=== PATIENT | male | born 1935 | race Caucasian/White ===

== ENCOUNTER 2017-08-12 22:48 | Inpatient (IN) ==
[2017-08-12] MEDS ORDERED: ONDANSETRON 4 MG/2 ML VIAL IV STA (23:17)
[2017-08-12] MEDS ORDERED: NITROGLYCERIN 2% OINT 1 INCH/GM PACK TOP STA (23:17)
[2017-08-12] MEDS ORDERED: ASPIRIN 325 MG TABLET PO STA (23:17)
[2017-08-12 23:31] LABS: Basophils # 0.1 10*3/uL (0.0-0.2); Basophils % 0.8 % (0.0-0.8); Eosinophils # 0.3 10*3/uL (0.0-0.87); Hematocrit 38.7 VOL% (42.0-52.0); Hemoglobin 12.9 GM/DL (14.0-18.0); Immature Granulocytes % 0.1 %; Immature Granulocytes Absolute 0.01 #; Lymphocytes # 2.8 10*3/uL (1.4-4.0); Lymphocytes % 37.5 % (21.2-54.2); Mean Corpuscular HGB Conc 33.3 GM/DL (32-36); Mean Corpuscular Hemoglobin 30 PG (27-34); Mean Corpuscular Volume 90.2 FL (87-102); Mean Platelet Volume 10.8 FL (9.6-12.0); Monocytes # 1.3 10*3/uL (0.11-0.8); Monocytes % 16.6 % (1.7-12.7); Neutrophils # 3.1 10*3/uL (1.4-7.4); Platelet Count 232 T/CUMM (130-400); Red Blood Count 4.29 MC/CUMM (3.8-5.5); Red Cell Distribution Width 15.2 % (9.3-17.3); White Blood Count 7.5 T/CUMM (4-12)
[2017-08-12] MEDS ORDERED: NITROGLYCERIN 2% OINT 1 INCH/GM PACK TOP ONE (23:41)
[2017-08-12] MEDS ORDERED: ASPIRIN 325 MG TABLET ONE (23:41)
[2017-08-12] MEDS ORDERED: ONDANSETRON 4 MG/2 ML VIAL ONE (23:41)
[2017-08-12 23:42] LABS: Alanine Aminotransferase 14 U/L (16-61); Albumin 3.7 G/DL (3.4-5.0); Alkaline Phosphatase 63 U/L (45-117); Aspartate Amino Transferase 16 U/L (0-37); Bilirubin,Total < 0.39 MG/DL (0.2-1.0); Blood Urea Nitrogen 24 MG/DL (7-18); Calcium 8.9 MG/DL (8.5-10.1); Glucose 95 MG/DL (74-106); Potassium 3.8 MMOL/L (3.5-5.1); Sodium 143 MMOL/L (136-145); Total Protein 6.9 G/DL (6.4-8.3)
[2017-08-13 00:48] LABS: Apearance,Urine Slightly Hazy (Clear); Bilirubin,Urine Negative (Negative); Blood, Urine Moderate mg/dL (Negative); Glucose,Urine (UA) Negative (Negative); Hyaline Casts,Urine 6 /LPF (0-3); Ketones,Urine Negative (Negative); Mucus,Urine Occasional /LPF (Occasional); Nitrite,Urine Negative (Negative); Protein,Urine Negative; RBC,Urine 7 /HPF (0-4); Squamous Epithelial Cell,Urine Occasional /HPF (0-10); Urine Color Yellow (Yellow); Urine Specific Gravity 1.025 (1.001-1.035); Urine Urobilinogen < 2.0 EU/DL (0.2-1.0); WBC,Urine 11 /HPF (0-6)
[2017-08-13 00:49] LABS: Barbiturates Screen,Urine Negative (Negative); Benzodiazepines Screen,Urine Negative (Negative); Cannabinoid Screen,Urine Negative (Negative); Opiate Screen,Urine Negative (Negative); Phencyclidine Screen,Urine Negative (Negative)
[2017-08-13 01:05] LABS: Eosinophils 4 % (0-10); Lymphocytes 36 % (20-55); Segmented Neutrophils 45 % (50-85); Total Cells Counted 100
[2017-08-13 01:06] LABS: Burr Cells Few; Platelet Estimate Adequate
[2017-08-13 01:07] LABS: Ovalocytes Slight; Target Cells Slight
[2017-08-13] MEDS ORDERED: ALUM/MAG/SIMETH/LIDO VISC 1:1 30 ML BOTTLE PO ONE (01:16)
[2017-08-13] MEDS ORDERED: ONDANSETRON 4 MG/2 ML VIAL IV PRN (02:31)
[2017-08-13] MEDS ORDERED: HYDROmorphone 2 MG/1 ML VIAL IV PRN (02:31)
[2017-08-13 08:11] LABS: Troponin I Only < 0.015 NG/ML (0.00-0.045)
[2017-08-13] MEDS ORDERED: PANTOPRAZOLE 40 MG VIAL IV SCH (09:00)
[2017-08-13] MEDS ORDERED: OMEPRAZOLE PO SCH (11:15)
[2017-08-13] MEDS ORDERED: SODIUM BICARBONATE PO SCH (11:15)
[2017-08-13] MEDS ORDERED: COENZYME Q10 100 MG CAPSULE PO SCH (11:30)
[2017-08-13] MEDS ORDERED: METOPROLOL SUCCINATE XL 25 MG TABLET PO SCH (11:30)
[2017-08-13] MEDS ORDERED: ASPIRIN EC 81 MG TABLET PO SCH (11:30)
[2017-08-13] MEDS ORDERED: CLOPIDOGREL 75 MG TABLET PO SCH (11:30)
[2017-08-13] MEDS ORDERED: CYANOCOBALAMIN 500 MCG TABLET PO SCH (11:30)
[2017-08-13] MEDS ORDERED: DIAZEPAM 5 MG TABLET ONE (12:21)
[2017-08-13] MEDS ORDERED: diphenhydrAMINE CAP 50 MG CAPSULE ONE (12:21)
[2017-08-13] MEDS ORDERED: DIAZEPAM 5 MG TABLET PO ONE (12:25)
[2017-08-13] MEDS ORDERED: diphenhydrAMINE CAP 50 MG CAPSULE PO ONE (12:25)
[2017-08-13] MEDS ORDERED: HEPARIN/NACL 0.9% 2 UNITS/ML 2,000 ML IV ONE (12:26)
[2017-08-13] MEDS ORDERED: LIDOCAINE 1% 20 ML VIAL ONE (12:26)
[2017-08-13] MEDS ORDERED: NITROGLYCERIN DRIP 50 MG/250 ML BOTTLE IV ONE (12:26)
[2017-08-13] MEDS ORDERED: VERAPAMIL 5 MG/2 ML VIAL ONE (12:27)
[2017-08-13] MEDS ORDERED: MIDAZOLAM 2 MG/2 ML VIAL ONE (12:36)
[2017-08-13] MEDS ORDERED: HYDROmorphone 2 MG/1 ML VIAL ONE (12:36)
[2017-08-13] MEDS: NITROGLYCERIN 2% OINT 1 INCH/GM PACK TOP SCH ×2 (12:46→12:47)
[2017-08-13] MEDS: SODIUM CHLORIDE 0.9% 1,000 ML IV SCH ×2 (12:48→17:31)
[2017-08-13] MEDS ORDERED: ENOXAPARIN 30 MG/0.3 ML SYRINGE ONE (13:03)
[2017-08-13 16:26] VITALS: BP 127/66
[2017-08-13] MEDS ORDERED: ROSUVASTATIN 10 MG TABLET PO SCH (21:00)
== END 2017-08-13 17:30 | disposition home or self-care (01) | DRG 287 ==
LOC: N.ED 22:48 → N.EDINP 08-13 00:10 → N.TELEN 08-13 01:30
PROVIDERS: ADMIT Internal Medicine Cardiovascular Disease; ATTEND Internal Medicine Cardiovascular Disease
PROC: CLCCHCL (ICD-10-PCS; 2017-08-13 13:15)

== ENCOUNTER 2018-06-17 20:09 | Observation (INO) ==
[2018-06-17] MEDS ORDERED: MORPHINE 4 MG/1 ML VIAL IV STA (21:45)
[2018-06-17] MEDS ORDERED: ASPIRIN 325 MG TABLET PO STA (21:45)
[2018-06-17] MEDS ORDERED: NITROGLYCERIN 2% OINT 1 INCH/GM PACK TOP STA (21:45)
[2018-06-17] MEDS ORDERED: ONDANSETRON 4 MG/2 ML VIAL IV STA (21:45)
[2018-06-17 22:21] LABS: Basophils # 0.1 10*3/uL (0.0-0.2); Basophils % 0.6 % (0.0-0.8); Eosinophils # 0.3 10*3/uL (0.0-0.87); Eosinophils % 3.1 % (0.00-10.9); Hematocrit 38.1 VOL% (42.0-52.0); Hemoglobin 12.4 GM/DL (14.0-18.0); Immature Granulocytes % 0.5 %; Immature Granulocytes Absolute 0.05 #; Lymphocytes # 2.4 10*3/uL (1.4-4.0); Lymphocytes % 22.3 % (21.2-54.2); Mean Corpuscular HGB Conc 32.5 GM/DL (32-36); Mean Corpuscular Hemoglobin 30 PG (27-34); Mean Corpuscular Volume 93.2 FL (87-102); Mean Platelet Volume 10.5 FL (9.6-12.0); Monocytes # 1.5 10*3/uL (0.11-0.8); Monocytes % 14.1 % (1.7-12.7); Neutrophils # 6.5 10*3/uL (1.4-7.4); Neutrophils % 59.4 % (38.7-73.9); Platelet Count 257 T/CUMM (130-400); Red Blood Count 4.09 MC/CUMM (3.8-5.5); Red Cell Distribution Width 13.8 % (9.3-17.3); White Blood Count 10.9 T/CUMM (4-12)
[2018-06-17 22:35] LABS: PT Patient Result 11.1 SECS; Partial Thromboplastin Time 25.7 SECS (0-40)
[2018-06-17 22:46] LABS: Albumin 3.3 G/DL (3.4-5.0); Bilirubin,Total 0.5 MG/DL (0.2-1.0); Calcium 8.1 MG/DL (8.5-10.1); Osmolality,Calculated 286.3 MOS/KG (273-304); Potassium 4.1 MMOL/L (3.5-5.1); Total Protein 7.1 G/DL (6.4-8.3)
[2018-06-17 22:48] LABS: Apearance,Urine CLEAR (Clear); Bilirubin,Urine Negative (Negative); Blood, Urine Small mg/dL (Negative); Glucose,Urine (UA) Negative (Negative); Ketones,Urine Negative (Negative); Mucus,Urine Occasional /LPF (Occasional); Nitrite,Urine Negative (Negative); Protein,Urine Negative; RBC,Urine 2 /HPF (0-4); Squamous Epithelial Cell,Urine Occasional /HPF (0-10); Urine Color Yellow (Yellow); Urine Urobilinogen < 2.0 EU/DL (0.2-1.0); WBC,Urine 1 /HPF (0-6)
[2018-06-17] MEDS ORDERED: ENOXAPARIN 100 MG/ML SYRINGE SUBCUT STA (22:56)
[2018-06-18] MEDS ORDERED: MORPHINE 4 MG/1 ML VIAL IV PRN (01:22)
[2018-06-18] MEDS ORDERED: ONDANSETRON 4 MG/2 ML VIAL IV PRN (01:22)
[2018-06-18] MEDS ORDERED: SODIUM CHLORIDE 0.9% 1,000 ML IV SCH (01:22)
[2018-06-18] MEDS ORDERED: ACETAMINOPHEN 325 MG TABLET PO PRN (01:22)
[2018-06-18 03:37] LABS: Basophils # 0.1 10*3/uL (0.0-0.2); Basophils % 0.6 % (0.0-0.8); Eosinophils # 0.4 10*3/uL (0.0-0.87); Eosinophils % 3.4 % (0.00-10.9); Hematocrit 36.9 VOL% (42.0-52.0); Immature Granulocytes % 0.2 %; Immature Granulocytes Absolute 0.02 #; Lymphocytes # 3.2 10*3/uL (1.4-4.0); Lymphocytes % 30.9 % (21.2-54.2); Mean Corpuscular HGB Conc 32.5 GM/DL (32-36); Mean Corpuscular Hemoglobin 30 PG (27-34); Mean Corpuscular Volume 92.5 FL (87-102); Mean Platelet Volume 10.8 FL (9.6-12.0); Monocytes # 1.6 10*3/uL (0.11-0.8); Monocytes % 15.3 % (1.7-12.7); Neutrophils # 5.1 10*3/uL (1.4-7.4); Neutrophils % 49.6 % (38.7-73.9); Platelet Count 252 T/CUMM (130-400); Red Blood Count 3.99 MC/CUMM (3.8-5.5); Red Cell Distribution Width 13.6 % (9.3-17.3); White Blood Count 10.2 T/CUMM (4-12)
[2018-06-18 03:44] LABS: Albumin 3.1 G/DL (3.4-5.0); Bilirubin,Total 0.6 MG/DL (0.2-1.0); Osmolality,Calculated 285.3 MOS/KG (273-304); Potassium 4.1 MMOL/L (3.5-5.1); Total Protein 6.7 G/DL (6.4-8.3); VLDL CHOLESTEROL 12.4 MG/DL
[2018-06-18] MEDS ORDERED: NITROGLYCERIN 2% OINT 1 INCH/GM PACK TOP SCH (06:00)
[2018-06-18] MEDS ORDERED: cloNIDine 0.1 MG TABLET PO PRN (06:33)
[2018-06-18 08:27] LABS: Eosinophils 2 % (0-10); Hypochromasia 1+; Lymphocytes 34 % (20-55); Microcytosis Slight; Segmented Neutrophils 55 % (50-85); Total Cells Counted 100
[2018-06-18 08:28] LABS: Acanthocytes Few; Burr Cells Slight; Ovalocytes Slight; Platelet Estimate Normal
[2018-06-18] MEDS ORDERED: ISOSORBIDE MONONITRATE 30 MG TABLET PO SCH (09:00)
[2018-06-18] MEDS ORDERED: ENOXAPARIN 80 MG/0.8 ML SYRINGE SUBCUT SCH (09:00)
[2018-06-18] MEDS ORDERED: CLOPIDOGREL 75 MG TABLET PO SCH (09:00)
[2018-06-18] MEDS ORDERED: METOPROLOL SUCCINATE XL 25 MG TABLET PO SCH (09:00)
[2018-06-18] MEDS ORDERED: ASPIRIN EC 81 MG TABLET PO SCH (09:00)
[2018-06-18] MEDS ORDERED: DOCUSATE SODIUM 100 MG CAPSULE PO SCH (09:00)
[2018-06-18] MEDS ORDERED: COENZYME Q10 100 MG CAPSULE PO SCH (09:00)
[2018-06-18] MEDS ORDERED: PANTOPRAZOLE 40 MG TABLET PO SCH (09:00)
[2018-06-18] MEDS ORDERED: hydrALAZINE 25 MG TABLET PO PRN (15:45)
[2018-06-18] MEDS ORDERED: GLUCAGON 1 MG VIAL ONE (15:58)
[2018-06-18 16:46] VITALS: BP 121/61
[2018-06-18] MEDS ORDERED: predniSONE 20 MG TABLET PO SCH (18:00)
[2018-06-18] MEDS ORDERED: ROSUVASTATIN 10 MG TABLET PO SCH (21:00)
[2018-06-19] MEDS ORDERED: ENOXAPARIN 40 MG/0.4 ML SYRINGE SUBCUT SCH (09:00)
== END 2018-06-18 17:13 | disposition home or self-care (01) ==
LOC: N.EDINP 20:09 → N.ED 20:09 → N.TELES 23:26
PROVIDERS: ADMIT Family Medicine; ATTEND Family Medicine

== ENCOUNTER 2018-11-10 16:55 | Observation (INO) ==
[2018-11-10] MEDS ORDERED: ENOXAPARIN 100 MG/ML SYRINGE SUBCUT STA (17:14)
[2018-11-10] MEDS ORDERED: MORPHINE 4 MG/1 ML VIAL IV PRN (17:14)
[2018-11-10] MEDS ORDERED: ASPIRIN 325 MG TABLET PO STA (17:14)
[2018-11-10] MEDS ORDERED: ONDANSETRON 4 MG/2 ML VIAL IV PRN (17:14)
[2018-11-10 17:31] LABS: Basophils # 0.1 10*3/uL (0.0-0.2); Basophils % 0.6 % (0.0-0.8); Eosinophils # 0.1 10*3/uL (0.0-0.87); Hemoglobin 12.7 GM/DL (14.0-18.0); Immature Granulocytes % 0.2 %; Immature Granulocytes Absolute 0.02 #; Lymphocytes # 1.4 10*3/uL (1.4-4.0); Lymphocytes % 14.6 % (21.2-54.2); Mean Corpuscular HGB Conc 32.6 GM/DL (32-36); Mean Corpuscular Volume 96.1 FL (87-102); Mean Platelet Volume 10.4 FL (9.6-12.0); Monocytes % 12.6 % (1.7-12.7); Platelet Count 208 T/CUMM (130-400); Red Blood Count 4.06 MC/CUMM (3.8-5.5); Red Cell Distribution Width 14.6 % (9.3-17.3); White Blood Count 9.8 T/CUMM (4-12)
[2018-11-10] MEDS: NITROGLYCERIN 2% OINT 1 INCH/GM PACK TOP STA ×2 (17:36→18:43)
[2018-11-10 17:43] LABS: PT Patient Result 10.7 SECS
[2018-11-10 17:54] LABS: Albumin 3.6 G/DL (3.4-5.0); Calcium 8.9 MG/DL (8.5-10.1); Total Protein 7.1 G/DL (6.4-8.3)
[2018-11-10] MEDS ORDERED: SODIUM CHLORIDE 0.9% 1,000 ML IV SCH (18:00)
[2018-11-10] MEDS ORDERED: ENOXAPARIN 40 MG/0.4 ML SYRINGE SUBCUT SCH (18:30)
[2018-11-10] MEDS ORDERED: AZELASTINE NASAL 137 MCG/SPRAY 30 ML BOTTLE BOTH NARES PRN (20:23)
[2018-11-10] MEDS: ROSUVASTATIN 10 MG TABLET PO SCH (22:13)
[2018-11-10] MEDS: DOCUSATE SODIUM 100 MG CAPSULE PO SCH (22:13)
[2018-11-10] MEDS: POTASSIUM CHLORIDE RIDER 10 MEQ in PREMIX 1 EACH IV SCH (22:18)
[2018-11-10] MEDS ORDERED: POTASSIUM CHLORIDE RIDER 10 MEQ in PREMIX 1 EACH IV SCH (23:00)
[2018-11-10] MEDS: POTASSIUM CHLORIDE 20 MEQ TABLET PO PRN (23:26)
[2018-11-10] MEDS: POTASSIUM CHLORIDE INJ 20 MEQ in SODIUM CHLORIDE 0.9% 1,000 ML IV SCH (23:26)
[2018-11-11] MEDS: POTASSIUM CHLORIDE 20 MEQ TABLET PO PRN ×3 (01:40→06:54)
[2018-11-11 04:55] LABS: Basophils # 0.1 10*3/uL (0.0-0.2); Basophils % 0.8 % (0.0-0.8); Eosinophils # 0.2 10*3/uL (0.0-0.87); Eosinophils % 3.3 % (0.00-10.9); Hematocrit 36.1 VOL% (42.0-52.0); Hemoglobin 11.8 GM/DL (14.0-18.0); Immature Granulocytes % 0.2 %; Immature Granulocytes Absolute 0.01 #; Lymphocytes # 2.3 10*3/uL (1.4-4.0); Mean Corpuscular HGB Conc 32.7 GM/DL (32-36); Mean Corpuscular Volume 96.8 FL (87-102); Mean Platelet Volume 10.6 FL (9.6-12.0); Monocytes % 14.2 % (1.7-12.7); Neutrophils % 43.5 % (38.7-73.9); Platelet Count 189 T/CUMM (130-400); Red Blood Count 3.73 MC/CUMM (3.8-5.5); Red Cell Distribution Width 14.6 % (9.3-17.3); White Blood Count 6.1 T/CUMM (4-12)
[2018-11-11 05:28] LABS: Albumin 3.2 G/DL (3.4-5.0); Bilirubin,Total 0.8 MG/DL (0.2-1.0); Calcium 8.1 MG/DL (8.5-10.1); Osmolality,Calculated 287.8 MOS/KG (273-304); Thyroid Stimulating Hormone 1.54 uIU/ml (0.358-3.74); Total Protein 6.1 G/DL (6.4-8.3)
[2018-11-11] MEDS: POTASSIUM CHLORIDE INJ 20 MEQ in SODIUM CHLORIDE 0.9% 1,000 ML IV SCH (06:52)
[2018-11-11] MEDS: DOCUSATE SODIUM 100 MG CAPSULE PO SCH ×2 (08:57→21:08)
[2018-11-11] MEDS ORDERED: METOPROLOL SUCCINATE XL 25 MG TABLET PO SCH (09:00)
[2018-11-11] MEDS ORDERED: CLOPIDOGREL 75 MG TABLET PO SCH (09:00)
[2018-11-11] MEDS ORDERED: CYANOCOBALAMIN 500 MCG TABLET PO SCH (09:00)
[2018-11-11] MEDS ORDERED: VALSARTAN 160 MG TABLET PO SCH (09:00)
[2018-11-11] MEDS ORDERED: ASPIRIN EC 81 MG TABLET PO SCH (09:00)
[2018-11-11] MEDS ORDERED: COENZYME Q10 100 MG CAPSULE PO SCH (09:00)
[2018-11-11] MEDS ORDERED: FUROSEMIDE 40 MG TABLET PO SCH (09:00)
[2018-11-11] MEDS ORDERED: hydroCHLOROthiazide 12.5 MG CAPSULE PO SCH (09:00)
[2018-11-11] MEDS ORDERED: amLODIPine 5 MG TABLET PO SCH (09:00)
[2018-11-11] MEDS ORDERED: PANTOPRAZOLE 40 MG TABLET PO SCH (09:00)
[2018-11-11] MEDS ORDERED: SODIUM CHLOR 0.9% KCL 20 MEQ 20 MEQ/1,000 ML BAG IV SCH (10:30)
[2018-11-11] MEDS ORDERED: ENOXAPARIN 40 MG/0.4 ML SYRINGE SUBCUT SCH (17:00)
[2018-11-11 20:28] VITALS: BP 129/77
[2018-11-11] MEDS: ROSUVASTATIN 10 MG TABLET PO SCH (21:06)
== END 2018-11-11 22:32 | disposition home or self-care (01) ==
LOC: EDBD → EDUNIT# → N.ED 16:55 → INTOOBSV 17:58 → N.EDINP 18:00 → N.TELES 19:12
PROVIDERS: ADMIT Family Medicine; ATTEND Family Medicine

== ENCOUNTER 2019-09-18 08:14 | Inpatient (IN) ==
[2019-09-18] MEDS ORDERED: PANTOPRAZOLE INJ 80 MG in SODIUM CHLORIDE 0.9% 100 ML IV STA (08:30)
[2019-09-18] MEDS ORDERED: SODIUM CHLORIDE 0.9% 500 ML IV STA ×2 (08:30→08:45)
[2019-09-18] MEDS ORDERED: PANTOPRAZOLE 40 MG VIAL IV ONE (08:37)
[2019-09-18 08:50] LABS: Basophils # 0.1 10*3/uL (0.0-0.2); Basophils % 0.5 % (0.0-0.8); Eosinophils # 0.1 10*3/uL (0.0-0.87); Eosinophils % 1.3 % (0.00-10.9); Hematocrit 38.3 VOL% (42.0-52.0); Hemoglobin 12.6 GM/DL (14.0-18.0); Immature Granulocytes % 0.9 %; Immature Granulocytes Absolute 0.08 #; Lymphocytes # 1.7 10*3/uL (1.4-4.0); Lymphocytes % 18.5 % (21.2-54.2); Mean Corpuscular HGB Conc 32.9 GM/DL (32-36); Mean Corpuscular Volume 99.7 FL (87-102); Mean Platelet Volume 10.2 FL (9.6-12.0); Neutrophils % 67.8 % (38.7-73.9); Platelet Count 198 T/CUMM (130-400); Red Blood Count 3.84 MC/CUMM (3.8-5.5); Red Cell Distribution Width 13.8 % (9.3-17.3); White Blood Count 9.3 T/CUMM (4-12)
[2019-09-18] MEDS ORDERED: ONDANSETRON 4 MG/2 ML VIAL IV PRN (08:58)
[2019-09-18] MEDS ORDERED: SODIUM CHLORIDE 0.9% 1,000 ML IV PRN (09:02)
[2019-09-18 09:03] LABS: PT Patient Result 11.1 SECS (9.6-12.2); Partial Thromboplastin Time 22.2 SECS (20.8-36.0)
[2019-09-18 09:12] LABS: Albumin 3.3 G/DL (3.4-5.0); Bilirubin,Total 0.4 MG/DL (0.2-1.0); Calcium 8.8 MG/DL (8.5-10.1); Osmolality,Calculated 293.4 MOS/KG (273-304); Total Protein 6.5 G/DL (6.4-8.3)
[2019-09-18] MEDS: PANTOPRAZOLE 40 MG VIAL IV SCH ×2 (10:06→20:56)
[2019-09-18] MEDS: SODIUM CHLORIDE 0.9% 1,000 ML IV SCH ×3 (10:31→21:01)
[2019-09-18] MEDS: DOCUSATE SODIUM 100 MG CAPSULE PO SCH ×2 (10:55→20:56)
[2019-09-18 11:20] LABS: Hematocrit 35.5 VOL% (42.0-52.0); Hemoglobin 11.4 GM/DL (14.0-18.0)
[2019-09-18 16:44] LABS: Hematocrit 31.4 VOL% (42.0-52.0)
[2019-09-18] MEDS: traMADol 50 MG TABLET PO PRN (20:57)
[2019-09-18] MEDS: ROSUVASTATIN 10 MG TABLET PO SCH (20:57)
[2019-09-18 21:04] LABS: Hematocrit 31.2 VOL% (42.0-52.0); Hemoglobin 10.2 GM/DL (14.0-18.0)
[2019-09-19 00:54] LABS: Hematocrit 26.8 VOL% (42.0-52.0); Hemoglobin 8.9 GM/DL (14.0-18.0)
[2019-09-19 04:52] LABS: Basophils % 0.3 % (0.0-0.8); Eosinophils # 0.1 10*3/uL (0.0-0.87); Eosinophils % 0.6 % (0.00-10.9); Hematocrit 25.2 VOL% (42.0-52.0); Hemoglobin 8.5 GM/DL (14.0-18.0); Immature Granulocytes % 0.6 %; Immature Granulocytes Absolute 0.06 #; Lymphocytes % 31.5 % (21.2-54.2); Mean Corpuscular HGB Conc 33.7 GM/DL (32-36); Mean Corpuscular Volume 99.2 FL (87-102); Mean Platelet Volume 11.1 FL (9.6-12.0); Monocytes % 12.6 % (1.7-12.7); Neutrophils % 54.4 % (38.7-73.9); Platelet Count 143 T/CUMM (130-400); Red Blood Count 2.54 MC/CUMM (3.8-5.5); Red Cell Distribution Width 13.9 % (9.3-17.3); White Blood Count 9.6 T/CUMM (4-12)
[2019-09-19] MEDS: SODIUM CHLORIDE 0.9% 1,000 ML IV SCH ×3 (05:16→15:14)
[2019-09-19] MEDS: PANTOPRAZOLE 40 MG VIAL IV SCH ×2 (08:52→20:43)
[2019-09-19] MEDS: DOCUSATE SODIUM 100 MG CAPSULE PO SCH ×2 (08:54→20:43)
[2019-09-19] MEDS: COENZYME Q10 100 MG CAPSULE PO SCH (08:57)
[2019-09-19 11:26] LABS: Troponin I 0.018 NG/ML (0.00-0.045)
[2019-09-19 13:07] LABS: Basophils # 0.1 10*3/uL (0.0-0.2); Basophils % 0.4 % (0.0-0.8); Eosinophils # 0.1 10*3/uL (0.0-0.87); Eosinophils % 0.7 % (0.00-10.9); Hematocrit 25.6 VOL% (42.0-52.0); Hemoglobin 8.4 GM/DL (14.0-18.0); Immature Granulocytes % 0.7 %; Immature Granulocytes Absolute 0.08 #; Lymphocytes # 2.6 10*3/uL (1.4-4.0); Lymphocytes % 23.4 % (21.2-54.2); Mean Corpuscular HGB Conc 32.8 GM/DL (32-36); Mean Corpuscular Volume 100.4 FL (87-102); Mean Platelet Volume 10.7 FL (9.6-12.0); Neutrophils % 60.8 % (38.7-73.9); Platelet Count 147 T/CUMM (130-400); Red Blood Count 2.55 MC/CUMM (3.8-5.5); Red Cell Distribution Width 14.1 % (9.3-17.3); White Blood Count 11.1 T/CUMM (4-12)
[2019-09-19] MEDS: FERRIC GLUCONATE COMPLEX 125 MG in SODIUM CHLORIDE 0.9% 100 ML IV SCH (13:47)
[2019-09-19 17:18] LABS: Hematocrit 23.2 VOL% (42.0-52.0); Hemoglobin 7.6 GM/DL (14.0-18.0)
[2019-09-19] MEDS: ROSUVASTATIN 10 MG TABLET PO SCH (20:43)
[2019-09-20] MEDS: traMADol 50 MG TABLET PO PRN (01:04)
[2019-09-20] MEDS: SODIUM CHLORIDE 0.9% 1,000 ML IV SCH ×3 (01:06→20:24)
[2019-09-20 04:45] LABS: Hematocrit 21.1 VOL% (42.0-52.0); Hemoglobin 7.1 GM/DL (14.0-18.0)
[2019-09-20] MEDS: PANTOPRAZOLE 40 MG VIAL IV SCH ×2 (08:42→20:22)
[2019-09-20] MEDS: DOCUSATE SODIUM 100 MG CAPSULE PO SCH ×2 (08:43→20:26)
[2019-09-20] MEDS ORDERED: POLYVINYL ALCOHOL 1.4% OPH SOLN 15 ML BOTTLE BOTH EYES PRN (08:43)
[2019-09-20] MEDS ORDERED: SODIUM CHLORIDE 0.9% 1,000 ML IV PRN (08:52)
[2019-09-20] MEDS: COENZYME Q10 100 MG CAPSULE PO SCH (13:14)
[2019-09-20] MEDS: FERRIC GLUCONATE COMPLEX 125 MG in SODIUM CHLORIDE 0.9% 100 ML IV SCH (16:24)
[2019-09-20] MEDS: ROSUVASTATIN 10 MG TABLET PO SCH (20:23)
[2019-09-21] MEDS: traMADol 50 MG TABLET PO PRN (01:06)
[2019-09-21] MEDS ORDERED: HYDROmorphone 2 MG/1 ML VIAL IV ONE (02:28)
[2019-09-21] MEDS: ONDANSETRON 4 MG/2 ML VIAL IV PRN ×4 (07:16→21:10)
[2019-09-21] MEDS: HYDROmorphone 2 MG/1 ML VIAL IV PRN ×2 (07:19→13:05)
[2019-09-21] MEDS: PANTOPRAZOLE 40 MG VIAL IV SCH ×2 (09:18→21:10)
[2019-09-21] MEDS: COENZYME Q10 100 MG CAPSULE PO SCH (09:19)
[2019-09-21] MEDS: FERRIC GLUCONATE COMPLEX 125 MG in SODIUM CHLORIDE 0.9% 100 ML IV SCH (09:24)
[2019-09-21] MEDS: DOCUSATE SODIUM 100 MG CAPSULE PO SCH ×2 (09:40→21:10)
[2019-09-21 10:22] LABS: Albumin 3.3 G/DL (3.4-5.0); Bilirubin,Total 0.4 MG/DL (0.2-1.0); Calcium 7.9 MG/DL (8.5-10.1); Total Protein 6.3 G/DL (6.4-8.3)
[2019-09-21 11:41] LABS: Basophils % 0.3 % (0.0-0.8); Eosinophils % 0.1 % (0.00-10.9); Hematocrit 28.6 VOL% (42.0-52.0); Hemoglobin 9.6 GM/DL (14.0-18.0); Immature Granulocytes Absolute 0.13 #; Lymphocytes # 1.4 10*3/uL (1.4-4.0); Lymphocytes % 10.8 % (21.2-54.2); Mean Corpuscular HGB Conc 33.6 GM/DL (32-36); Mean Corpuscular Volume 97.9 FL (87-102); Mean Platelet Volume 11.6 FL (9.6-12.0); Monocytes % 15.6 % (1.7-12.7); Neutrophils % 72.2 % (38.7-73.9); Platelet Count 148 T/CUMM (130-400); Red Blood Count 2.92 MC/CUMM (3.8-5.5); Red Cell Distribution Width 15.8 % (9.3-17.3); White Blood Count 12.6 T/CUMM (4-12)
[2019-09-21 12:13] LABS: Anisocytosis 1+; Band Neutrophils 4 % (0-10); Lymphocytes 9 % (20-55); Macrocytosis 1+; Platelet Estimate Adequate; Segmented Neutrophils 79 % (50-85); Total Cells Counted 100
[2019-09-21] MEDS: SODIUM CHLORIDE 0.9% 1,000 ML IV SCH (13:01)
[2019-09-21 14:59] LABS: Apearance,Urine CLEAR (Clear); Bilirubin,Urine Negative (Negative); Blood, Urine Moderate mg/dL (Negative); Glucose,Urine (UA) Negative (Negative); Ketones,Urine Negative (Negative); Mucus,Urine Occasional /LPF (Occasional); Nitrite,Urine Negative (Negative); Protein,Urine Negative; RBC,Urine 1 /HPF (0-4); Urine Color Yellow (Yellow); Urine Specific Gravity 1.019 (1.001-1.035); Urine Urobilinogen < 2.0 EU/DL (0.2-1.0); WBC,Urine 2 /HPF (0-6)
[2019-09-21] MEDS: ROSUVASTATIN 10 MG TABLET PO SCH (21:10)
[2019-09-22] MEDS: SODIUM CHLORIDE 0.9% 1,000 ML IV SCH (05:25)
[2019-09-22] MEDS ORDERED: LOSARTAN 50 MG TABLET PO SCH (09:00)
[2019-09-22] MEDS: PANTOPRAZOLE 40 MG VIAL IV SCH (09:17)
[2019-09-22] MEDS: COENZYME Q10 100 MG CAPSULE PO SCH (09:17)
[2019-09-22] MEDS: DOCUSATE SODIUM 100 MG CAPSULE PO SCH (09:17)
[2019-09-22 10:17] LABS: Hematocrit 26.2 VOL% (42.0-52.0); Hemoglobin 8.7 GM/DL (14.0-18.0)
[2019-09-22 11:55] VITALS: BP 122/40
== END 2019-09-22 14:36 | disposition home or self-care (01) | DRG 813 ==
LOC: N.ED 08:14 → N.EDINP 08:58 → N.CC 09:25 → N.3E 09-21 16:23
PROVIDERS: ADMIT Family Medicine; ATTEND Family Medicine

== ENCOUNTER 2020-08-01 07:49 | Inpatient (IN) ==
[2020-08-01] MEDS ORDERED: ONDANSETRON 4 MG/2 ML VIAL IV STA (07:55)
[2020-08-01] MEDS ORDERED: PANTOPRAZOLE 40 MG VIAL IV STA (07:55)
[2020-08-01] MEDS ORDERED: SODIUM CHLORIDE 0.9% 500 ML IV STA (07:55)
[2020-08-01 08:35] LABS: Basophils % 0.4 % (0.0-0.8); Eosinophils % 0.5 % (0.00-10.9); Hematocrit 35.9 VOL% (42.0-52.0); Hemoglobin 11.8 GM/DL (14.0-18.0); Immature Granulocytes % 1.3 %; Lymphocytes # 1.4 10*3/uL (1.4-4.0); Lymphocytes % 17.7 % (21.2-54.2); Mean Corpuscular HGB Conc 32.9 GM/DL (32-36); Monocytes % 11.6 % (1.7-12.7); Neutrophils % 68.5 % (38.7-73.9); Red Blood Count 3.52 MC/CUMM (3.8-5.5); Red Cell Distribution Width 13.6 % (9.3-17.3); White Blood Count 7.9 T/CUMM (4-12)
[2020-08-01 08:36] LABS: Platelet Count 104 T/CUMM (130-400)
[2020-08-01 08:44] LABS: INR 1.1; PT Patient Result 11.9 SECS (9.8-11.9)
[2020-08-01 08:52] LABS: Platelet Estimate Decreased
[2020-08-01] MEDS ORDERED: SODIUM CHLORIDE 0.9% 1,000 ML IV STA (08:52)
[2020-08-01 09:03] LABS: Albumin 3.2 G/DL (3.4-5.0); Bilirubin,Total 0.5 MG/DL (0.2-1.0); Osmolality,Calculated 295.3 MOS/KG (273-304); Potassium 4.2 MMOL/L (3.5-5.1); Total Protein 6.7 G/DL (6.4-8.3)
[2020-08-01] MEDS ORDERED: ONDANSETRON 4 MG/2 ML VIAL IV PRN (09:22)
[2020-08-01] MEDS ORDERED: ACETAMINOPHEN 325 MG TABLET PO PRN (09:22)
[2020-08-01] MEDS: SODIUM CHLORIDE 0.45% 1,000 ML IV SCH ×2 (09:53→18:34)
[2020-08-01] MEDS ORDERED: AZELASTINE NASAL 137 MCG/SPRAY 30 ML BOTTLE BOTH NARES PRN (13:10)
[2020-08-01 15:19] LABS: Basophils % 0.3 % (0.0-0.8); Eosinophils % 0.3 % (0.00-10.9); Hematocrit 30.1 VOL% (42.0-52.0); Hemoglobin 9.5 GM/DL (14.0-18.0); Immature Granulocytes Absolute 0.09 #; Lymphocytes % 22.4 % (21.2-54.2); Mean Corpuscular HGB Conc 31.6 GM/DL (32-36); Mean Corpuscular Volume 103.8 FL (87-102); Mean Platelet Volume 10.6 FL (9.6-12.0); Monocytes % 12.7 % (1.7-12.7); Neutrophils % 63.3 % (38.7-73.9); Platelet Count 132 T/CUMM (130-400); Red Cell Distribution Width 13.6 % (9.3-17.3); White Blood Count 8.9 T/CUMM (4-12)
[2020-08-01 19:27] LABS: Hematocrit 29.6 VOL% (42.0-52.0); Hemoglobin 9.9 GM/DL (14.0-18.0)
[2020-08-01] MEDS ORDERED: DOCUSATE SODIUM 100 MG CAPSULE PO SCH (21:00)
[2020-08-01] MEDS: ROSUVASTATIN 10 MG TABLET PO SCH (21:03)
[2020-08-02] MEDS: SODIUM CHLORIDE 0.45% 1,000 ML IV SCH ×2 (00:20→21:42)
[2020-08-02 06:55] LABS: Hematocrit 24.8 VOL% (42.0-52.0); Hemoglobin 8.5 GM/DL (14.0-18.0)
[2020-08-02] MEDS ORDERED: SODIUM CHLORIDE 0.9% 1,000 ML IV PRN (07:46)
[2020-08-02] MEDS ORDERED: PANTOPRAZOLE 40 MG VIAL IV SCH (09:00)
[2020-08-02] MEDS: PANTOPRAZOLE 40 MG TABLET PO SCH (09:20)
[2020-08-02] MEDS: ZINC GLUCONATE 50 MG TABLET PO SCH (09:20)
[2020-08-02 20:11] LABS: Hematocrit 29.7 VOL% (42.0-52.0); Hemoglobin 9.7 GM/DL (14.0-18.0)
[2020-08-02] MEDS: ROSUVASTATIN 10 MG TABLET PO SCH (21:38)
[2020-08-02] MEDS ORDERED: ALUMINUM/MAGNES/SIMETH MAX STR 30 ML UDCUP PO PRN (22:26)
[2020-08-03 05:20] LABS: Basophils % 0.4 % (0.0-0.8); Eosinophils # 0.2 10*3/uL (0.0-0.87); Eosinophils % 2.6 % (0.00-10.9); Hematocrit 28.5 VOL% (42.0-52.0); Hemoglobin 9.4 GM/DL (14.0-18.0); Immature Granulocytes % 0.7 %; Immature Granulocytes Absolute 0.05 #; Lymphocytes # 2.7 10*3/uL (1.4-4.0); Lymphocytes % 37.2 % (21.2-54.2); Mean Platelet Volume 11.2 FL (9.6-12.0); Monocytes % 16.9 % (1.7-12.7); Neutrophils % 42.2 % (38.7-73.9); Platelet Count 103 T/CUMM (130-400); Red Cell Distribution Width 16.5 % (9.3-17.3); White Blood Count 7.2 T/CUMM (4-12)
[2020-08-03 05:41] LABS: Calcium 7.9 MG/DL (8.5-10.1); Potassium 3.8 MMOL/L (3.5-5.1)
[2020-08-03 05:51] LABS: Hypochromasia Slight; Lymphocytes 39 % (20-55); Platelet Estimate Adequate; Segmented Neutrophils 48 % (50-85); Total Cells Counted 100
[2020-08-03] MEDS ORDERED: LACTATED RINGERS 1,000 ML IV SCH (08:00)
[2020-08-03] MEDS ORDERED: propofoL 200 MG/20 ML VIAL IV ONE (10:20)
[2020-08-03] MEDS ORDERED: LIDOCAINE 2% 5 ML VIAL ONE (10:20)
[2020-08-03] MEDS ORDERED: ETOMIDATE 20 MG/10 ML VIAL IV ONE (10:20)
[2020-08-03 11:32] VITALS: BP 131/65
[2020-08-03] MEDS: PANTOPRAZOLE 40 MG TABLET PO SCH (12:25)
[2020-08-03] MEDS: ZINC GLUCONATE 50 MG TABLET PO SCH (12:29)
== END 2020-08-03 16:44 | disposition home or self-care (01) | DRG 813 ==
LOC: EDBD → EDUNIT# → N.EDINP 07:49 → N.ED 07:49 → N.EDINP 14:14 → N.5E 14:30
PROVIDERS: ADMIT Family Medicine; ATTEND Family Medicine

== ENCOUNTER 2020-12-22 09:15 | Inpatient (IN) ==
[2020-12-22] MEDS ORDERED: SODIUM CHLORIDE 0.9% 1,000 ML IV STA (10:05)
[2020-12-22 10:12] LABS: Basophils # 0.1 10*3/uL (0.0-0.2); Basophils % 0.3 % (0.0-0.8); Eosinophils % 0.1 % (0.00-10.9); Hematocrit 36.6 VOL% (42.0-52.0); Immature Granulocytes % 1.5 %; Immature Granulocytes Absolute 0.31 #; Lymphocytes % 4.9 % (21.2-54.2); Mean Corpuscular HGB Conc 32.8 GM/DL (32-36); Mean Corpuscular Volume 94.8 FL (87-102); Mean Platelet Volume 10.5 FL (9.6-12.0); Monocytes % 30.6 % (1.7-12.7); Neutrophils % 62.6 % (38.7-73.9); Platelet Count 251 T/CUMM (130-400); Red Blood Count 3.86 MC/CUMM (3.8-5.5); Red Cell Distribution Width 16.8 % (9.3-17.3); White Blood Count 20.9 T/CUMM (4-12)
[2020-12-22 10:25] LABS: Alanine Aminotransferase 32 U/L (16-61); Albumin 2.7 G/DL (3.4-5.0); Alkaline Phosphatase 92 U/L (45-117); Aspartate Amino Transferase 25 U/L (0-37); Bilirubin,Total < 0.39 MG/DL (0.2-1.0); Blood Urea Nitrogen 17 MG/DL (7-18); Calcium 8.9 MG/DL (8.5-10.1); Carbon Dioxide 24 MMOL/L (21-32); Estimated Glom Filtration Rate 78 ML/MIN; Glucose 130 MG/DL (74-106); Osmolality,Calculated 276.8 MOS/KG (273-304); Potassium 3.7 MMOL/L (3.5-5.1); Sodium 137 MMOL/L (136-145); Total Protein 7.1 G/DL (6.4-8.2)
[2020-12-22 10:31] LABS: Band Neutrophils 1 % (0-10); Lymphocytes 1 % (20-55); Platelet Estimate Adequate; Segmented Neutrophils 76 % (50-85); Total Cells Counted 100
[2020-12-22 10:32] LABS: Burr Cells Slight; Ovalocytes Slight
[2020-12-22] MEDS ORDERED: cefTRIAXone 1,000 MG in SODIUM CHLORIDE 0.9% 100 ML IV STA (13:41)
[2020-12-22] MEDS ORDERED: ONDANSETRON 4 MG/2 ML VIAL IV PRN (13:45)
[2020-12-22] MEDS ORDERED: ACETAMINOPHEN 325 MG TABLET PO PRN (13:45)
[2020-12-22] MEDS ORDERED: cloNIDine 0.1 MG TABLET PO PRN (13:48)
[2020-12-22] MEDS: DEXTROSE 5% NACL 0.9% 1,000 ML IV SCH (15:42)
[2020-12-22] MEDS: valACYclovir 500 MG TABLET PO SCH ×2 (15:43→22:06)
[2020-12-22] MEDS ORDERED: METOPROLOL TARTRATE 5 MG/5 ML VIAL IV PRN (16:31)
[2020-12-22] MEDS ORDERED: cloNIDine 0.1 MG/24 HR PATCH TRANSDERM SCH (17:00)
[2020-12-22] MEDS: MYLANTA/LIDO VISC 2:1 300 ML BOTTLE SWISH/SPIT SCH (22:05)
[2020-12-22] MEDS: ROSUVASTATIN 10 MG TABLET PO SCH (22:06)
[2020-12-22] MEDS: ENOXAPARIN 30 MG/0.3 ML SYRINGE SUBCUT SCH (22:06)
[2020-12-22] MEDS: DOCUSATE SODIUM 100 MG CAPSULE PO SCH (22:06)
[2020-12-23] MEDS: CLINDAMYCIN INJ 300 MG/50 ML PREMIX IV SCH ×2 (01:02→08:09)
[2020-12-23] MEDS: methylPREDNISolone SOD SUC 40 MG/1 ML VIAL IV SCH ×2 (02:55→12:09)
[2020-12-23 06:05] LABS: Basophils # 0.1 10*3/uL (0.0-0.2); Basophils % 0.4 % (0.0-0.8); Eosinophils # 0.1 10*3/uL (0.0-0.87); Eosinophils % 0.7 % (0.00-10.9); Hemoglobin 10.8 GM/DL (14.0-18.0); Immature Granulocytes % 1.5 %; Immature Granulocytes Absolute 0.24 #; Lymphocytes # 0.8 10*3/uL (1.4-4.0); Lymphocytes % 4.6 % (21.2-54.2); Mean Corpuscular HGB Conc 32.7 GM/DL (32-36); Mean Corpuscular Volume 94.6 FL (87-102); Mean Platelet Volume 10.2 FL (9.6-12.0); Neutrophils % 73.8 % (38.7-73.9); Platelet Count 260 T/CUMM (130-400); Red Blood Count 3.49 MC/CUMM (3.8-5.5); White Blood Count 16.5 T/CUMM (4-12)
[2020-12-23 06:19] LABS: Calcium 8.2 MG/DL (8.5-10.1); Osmolality,Calculated 282.4 MOS/KG (273-304); Potassium 3.6 MMOL/L (3.5-5.1)
[2020-12-23 06:45] LABS: Band Neutrophils 2 % (0-10); Lymphocytes 5 % (20-55); Segmented Neutrophils 82 % (50-85); Total Cells Counted 100
[2020-12-23 06:46] LABS: Hypochromasia Slight; Microcytosis 1+; Platelet Estimate Normal
[2020-12-23] MEDS ORDERED: COENZYME Q10 100 MG CAPSULE PO SCH (09:00)
[2020-12-23] MEDS: DEXTROSE 5% NACL 0.9% 1,000 ML IV SCH ×5 (09:17→17:35)
[2020-12-23] MEDS: DOCUSATE SODIUM 100 MG CAPSULE PO SCH ×2 (09:28→21:42)
[2020-12-23] MEDS: CHOLECALCIFEROL 1,000 UNIT TABLET PO SCH (09:28)
[2020-12-23] MEDS: ASCORBIC ACID 500 MG TABLET PO SCH (09:28)
[2020-12-23] MEDS: TAMSULOSIN 0.4 MG CAPSULE PO SCH (09:28)
[2020-12-23] MEDS: CYANOCOBALAMIN 500 MCG TABLET PO SCH (09:28)
[2020-12-23] MEDS: ASPIRIN EC 81 MG TABLET PO SCH (09:28)
[2020-12-23] MEDS: MYLANTA/LIDO VISC 2:1 300 ML BOTTLE SWISH/SPIT SCH ×5 (09:28→21:42)
[2020-12-23] MEDS: valACYclovir 500 MG TABLET PO SCH ×3 (09:28→21:41)
[2020-12-23] MEDS: PANTOPRAZOLE 40 MG TABLET PO SCH (09:28)
[2020-12-23] MEDS: PROPRANOLOL 20 MG TABLET PO SCH ×2 (15:42→21:41)
[2020-12-23] MEDS: NYSTATIN 500,000 UNIT/5 ML UDCUP SWISH/SWAL SCH ×2 (17:35→21:41)
[2020-12-23] MEDS: ENOXAPARIN 30 MG/0.3 ML SYRINGE SUBCUT SCH (21:40)
[2020-12-23] MEDS: ROSUVASTATIN 10 MG TABLET PO SCH (21:41)
[2020-12-24] MEDS: methylPREDNISolone SOD SUC 40 MG/1 ML VIAL IV SCH ×2 (01:04→20:42)
[2020-12-24] MEDS: DEXTROSE 5% NACL 0.9% 1,000 ML IV SCH ×3 (01:06→20:47)
[2020-12-24 05:55] LABS: Basophils % 0.2 % (0.0-0.8); Hematocrit 31.7 VOL% (42.0-52.0); Hemoglobin 10.3 GM/DL (14.0-18.0); Immature Granulocytes % 2.1 %; Lymphocytes # 0.9 10*3/uL (1.4-4.0); Lymphocytes % 6.4 % (21.2-54.2); Mean Corpuscular HGB Conc 32.5 GM/DL (32-36); Mean Corpuscular Volume 94.1 FL (87-102); Mean Platelet Volume 10.3 FL (9.6-12.0); Monocytes % 9.1 % (1.7-12.7); Neutrophils % 82.2 % (38.7-73.9); Platelet Count 258 T/CUMM (130-400); Red Blood Count 3.37 MC/CUMM (3.8-5.5); Red Cell Distribution Width 17.2 % (9.3-17.3); White Blood Count 14.1 T/CUMM (4-12)
[2020-12-24 06:05] LABS: Calcium 8.1 MG/DL (8.5-10.1); Osmolality,Calculated 290.7 MOS/KG (273-304); Potassium 3.1 MMOL/L (3.5-5.1); Uric Acid 4.2 MG/DL (3.5-7.2)
[2020-12-24 06:20] LABS: Band Neutrophils 1 % (0-10); Hypochromasia Slight; Lymphocytes 6 % (20-55); Microcytosis 1+; Platelet Estimate Adequate; Segmented Neutrophils 87 % (50-85); Total Cells Counted 100
[2020-12-24] MEDS: CHOLECALCIFEROL 1,000 UNIT TABLET PO SCH (08:18)
[2020-12-24] MEDS: CYANOCOBALAMIN 500 MCG TABLET PO SCH (08:18)
[2020-12-24] MEDS: ASPIRIN EC 81 MG TABLET PO SCH (08:18)
[2020-12-24] MEDS: valACYclovir 500 MG TABLET PO SCH ×3 (08:19→20:45)
[2020-12-24] MEDS: ASCORBIC ACID 500 MG TABLET PO SCH (08:19)
[2020-12-24] MEDS: PROPRANOLOL 20 MG TABLET PO SCH ×3 (08:19→20:45)
[2020-12-24] MEDS: NYSTATIN 500,000 UNIT/5 ML UDCUP SWISH/SWAL SCH ×4 (08:19→20:45)
[2020-12-24] MEDS: PANTOPRAZOLE 40 MG TABLET PO SCH (08:19)
[2020-12-24] MEDS: DOCUSATE SODIUM 100 MG CAPSULE PO SCH ×2 (08:19→20:45)
[2020-12-24] MEDS: TAMSULOSIN 0.4 MG CAPSULE PO SCH (08:19)
[2020-12-24] MEDS: MYLANTA/LIDO VISC 2:1 300 ML BOTTLE SWISH/SPIT SCH ×8 (08:30→20:46)
[2020-12-24] MEDS: POTASSIUM CHLORIDE 20 MEQ TABLET PO SCH (11:02)
[2020-12-24] MEDS ORDERED: cefTRIAXone 1,000 MG in SODIUM CHLORIDE 0.9% 100 ML IV ONE (15:47)
[2020-12-24 15:52] LABS: Bilirubin,Urine Negative (Negative); Blood, Urine Negative (Negative); Glucose,Urine (UA) 150 mg/dL (Negative); Ketones,Urine Negative (Negative); Mucus,Urine Many /LPF (Occasional); Nitrite,Urine Negative (Negative); Protein,Urine 30 MG/DL; RBC,Urine 6 /HPF (0-4); Squamous Epithelial Cell,Urine Occasional /HPF (0-10); Urine Appearance CLEAR (Clear); Urine Color Yellow (Yellow); Urine Specific Gravity 1.028 (1.001-1.035); Urine Urobilinogen < 2.0 EU/DL (0.2-1.0)
[2020-12-24] MEDS: ENOXAPARIN 30 MG/0.3 ML SYRINGE SUBCUT SCH (20:45)
[2020-12-24] MEDS: ROSUVASTATIN 10 MG TABLET PO SCH (20:45)
[2020-12-25] MEDS: DEXTROSE 5% NACL 0.9% 1,000 ML IV SCH (05:55)
[2020-12-25 06:01] LABS: Basophils % 0.4 % (0.0-0.8); Hematocrit 33.5 VOL% (42.0-52.0); Hemoglobin 10.9 GM/DL (14.0-18.0); Immature Granulocytes % 2.2 %; Immature Granulocytes Absolute 0.18 #; Lymphocytes % 12.7 % (21.2-54.2); Mean Corpuscular HGB Conc 32.5 GM/DL (32-36); Mean Corpuscular Volume 94.6 FL (87-102); Mean Platelet Volume 10.7 FL (9.6-12.0); Monocytes % 6.5 % (1.7-12.7); Neutrophils % 78.2 % (38.7-73.9); Platelet Count 280 T/CUMM (130-400); Red Blood Count 3.54 MC/CUMM (3.8-5.5); Red Cell Distribution Width 17.3 % (9.3-17.3); White Blood Count 8.2 T/CUMM (4-12)
[2020-12-25 06:11] LABS: Osmolality,Calculated 288.8 MOS/KG (273-304); Potassium 3.5 MMOL/L (3.5-5.1)
[2020-12-25 06:29] LABS: Hypochromasia Slight; Lymphocytes 9 % (20-55); Microcytosis Slight; Platelet Estimate Adequate; Segmented Neutrophils 84 % (50-85); Total Cells Counted 100
[2020-12-25 06:30] LABS: Burr Cells Slight; Ovalocytes Slight
[2020-12-25] MEDS ORDERED: LIDOCAINE 2% TOP JELLY 20 ML VIAL INTRAURETH ONE (07:55)
[2020-12-25] MEDS: CHOLECALCIFEROL 1,000 UNIT TABLET PO SCH (09:35)
[2020-12-25] MEDS: valACYclovir 500 MG TABLET PO SCH ×2 (09:35→14:38)
[2020-12-25] MEDS: PANTOPRAZOLE 40 MG TABLET PO SCH (09:36)
[2020-12-25] MEDS: ASPIRIN EC 81 MG TABLET PO SCH (09:36)
[2020-12-25] MEDS: PROPRANOLOL 20 MG TABLET PO SCH ×2 (09:36→14:38)
[2020-12-25] MEDS: TAMSULOSIN 0.4 MG CAPSULE PO SCH (09:36)
[2020-12-25] MEDS: POTASSIUM CHLORIDE 20 MEQ TABLET PO SCH (09:36)
[2020-12-25] MEDS: ASCORBIC ACID 500 MG TABLET PO SCH (09:37)
[2020-12-25] MEDS: NYSTATIN 500,000 UNIT/5 ML UDCUP SWISH/SWAL SCH ×2 (09:37→14:38)
[2020-12-25] MEDS: methylPREDNISolone SOD SUC 40 MG/1 ML VIAL IV SCH (09:37)
[2020-12-25] MEDS: MYLANTA/LIDO VISC 2:1 300 ML BOTTLE SWISH/SPIT SCH ×3 (09:38→17:26)
[2020-12-25] MEDS: DOCUSATE SODIUM 100 MG CAPSULE PO SCH (09:44)
[2020-12-25] MEDS: CYANOCOBALAMIN 500 MCG TABLET PO SCH (09:44)
[2020-12-25 11:20] VITALS: BP 118/69
== END 2020-12-25 17:26 | disposition home or self-care (01) | DRG 158 ==
LOC: EDUNIT# → EDBD → N.ED 09:15 → N.EDINP 09:15 → N.5E 14:24
PROVIDERS: ADMIT Family Medicine; ATTEND Family Medicine

== ENCOUNTER 2021-10-24 09:52 | Inpatient (IN) ==
[2021-10-24] MEDS ORDERED: SODIUM CHLORIDE 0.9% 1,000 ML IV STA (10:50)
[2021-10-24 11:12] LABS: Basophils # 0.1 10*3/uL (0.0-0.2); Basophils % 0.3 % (0.0-0.8); Eosinophils % 0.2 % (0.00-10.9); Hematocrit 35.2 VOL% (42.0-52.0); Hemoglobin 11.9 GM/DL (14.0-18.0); Immature Granulocytes % 1.3 %; Immature Granulocytes Absolute 0.26 #; Lymphocytes # 0.8 10*3/uL (1.4-4.0); Mean Corpuscular HGB Conc 33.8 GM/DL (32-36); Mean Corpuscular Volume 99.2 FL (87-102); Mean Platelet Volume 11.2 FL (9.6-12.0); Monocytes # 8.3 10*3/uL (0.11-0.8); Monocytes % 40.2 % (1.7-12.7); Platelet Count 170 T/CUMM (130-400); Red Blood Count 3.55 MC/CUMM (3.8-5.5); Red Cell Distribution Width 14.9 % (9.3-17.3); White Blood Count 20.5 T/CUMM (4-12)
[2021-10-24 11:13] LABS: Albumin 3.4 G/DL (3.4-5.0); Bilirubin,Total 0.7 MG/DL (0.20-1.00); Calcium 9.1 MG/DL (8.5-10.1); Osmolality,Calculated 278.7 MOS/KG (273-304); Potassium 3.9 MMOL/L (3.5-5.1); Total Protein 7.7 G/DL (6.4-8.2)
[2021-10-24 11:36] LABS: Lymphocytes 4 % (20-55); Total Cells Counted 100
[2021-10-24 11:37] LABS: Platelet Estimate Adequate
[2021-10-24] MEDS ORDERED: KETOROLAC 30 MG/1 ML VIAL ONE (14:29)
[2021-10-24 14:43] LABS: Urine Color Amber (Yellow)
[2021-10-24] MEDS ORDERED: ONDANSETRON 4 MG/2 ML VIAL IV PRN (14:43)
[2021-10-24 14:44] LABS: Bilirubin,Urine Negative (Negative); Blood, Urine Large mg/dL (Negative); Glucose,Urine (UA) Negative (Negative); Ketones,Urine 15 mg/dL (Negative); Nitrite,Urine Negative (Negative); Protein,Urine 30 mg/dL (Negative); Urine Appearance Slightly Cloudy (Clear); Urine Urobilinogen 0.2 eU/dL (<2.0)
[2021-10-24 14:45] LABS: Mucus,Urine Moderate /LPF (Occasional); RBC,Urine 125 /HPF (0-4)
[2021-10-24] MEDS: cefTRIAXone 1,000 MG in SODIUM CHLORIDE 0.9% 100 ML IV SCH (15:50)
[2021-10-24] MEDS: SODIUM CHLORIDE 0.9% 1,000 ML IV SCH (15:50)
[2021-10-24] MEDS ORDERED: HYDROmorphone 1 MG/1 ML SYRINGE IV STA ×2 (16:36→18:21)
[2021-10-24] MEDS: PROPRANOLOL 20 MG TABLET PO SCH ×2 (18:55→21:36)
[2021-10-24] MEDS: ROSUVASTATIN 10 MG TABLET PO SCH (21:36)
[2021-10-24] MEDS: DOCUSATE SODIUM 100 MG CAPSULE PO SCH (21:36)
[2021-10-25] MEDS ORDERED: PROMETHAZINE 25 MG/1 ML VIAL IM PRN (01:39)
[2021-10-25] MEDS: SODIUM CHLORIDE 0.9% 1,000 ML IV SCH ×3 (01:51→16:24)
[2021-10-25] MEDS: traMADol 50 MG TABLET PO PRN ×3 (04:34→18:13)
[2021-10-25 05:05] LABS: Basophils # 0.2 10*3/uL (0.0-0.2); Basophils % 0.5 % (0.0-0.8); Hematocrit 36.5 VOL% (42.0-52.0); Hemoglobin 12.1 GM/DL (14.0-18.0); Immature Granulocytes % 3.5 %; Immature Granulocytes Absolute 1.08 #; Lymphocytes % 3.3 % (21.2-54.2); Mean Corpuscular HGB Conc 33.2 GM/DL (32-36); Mean Corpuscular Volume 102.5 FL (87-102); Monocytes # 10.2 10*3/uL (0.11-0.8); Monocytes % 32.9 % (1.7-12.7); Neutrophils % 59.8 % (38.7-73.9); Platelet Count 137 T/CUMM (130-400); Red Blood Count 3.56 MC/CUMM (3.8-5.5); Red Cell Distribution Width 15.5 % (9.3-17.3); White Blood Count 31.1 T/CUMM (4-12)
[2021-10-25 05:23] LABS: Calcium 8.9 MG/DL (8.5-10.1); Osmolality,Calculated 277.4 MOS/KG (273-304); Potassium 5.3 MMOL/L (3.5-5.1)
[2021-10-25 06:05] LABS: Band Neutrophils 24 % (0-10); Lymphocytes 5 % (20-55); Total Cells Counted 100
[2021-10-25 06:06] LABS: Anisocytosis Slight; Macrocytosis Slight; Platelet Estimate Adequate
[2021-10-25] MEDS: PANTOPRAZOLE 40 MG TABLET PO SCH (06:21)
[2021-10-25] MEDS ORDERED: cefTRIAXone 1,000 MG in SODIUM CHLORIDE 0.9% 100 ML IV ONE (06:25)
[2021-10-25] MEDS: ALUMINUM/MAGNES/SIMETH MAX STR 30 ML UDCUP PO PRN (08:05)
[2021-10-25] MEDS ORDERED: GLUCAGON 1 MG VIAL IM PRN (09:00)
[2021-10-25] MEDS ORDERED: DEXTROSE 10% 25 GM/250 ML BAG IV PRN (09:00)
[2021-10-25] MEDS: DOCUSATE SODIUM 100 MG CAPSULE PO SCH ×2 (10:37→21:52)
[2021-10-25] MEDS: PROPRANOLOL 20 MG TABLET PO SCH ×3 (10:38→21:52)
[2021-10-25] MEDS: ASPIRIN EC 81 MG TABLET PO SCH (10:38)
[2021-10-25] MEDS: amLODIPine 2.5 MG TABLET PO SCH (10:38)
[2021-10-25] MEDS: INSULIN REGULAR 100 UNIT/ML SUBCUT SCH ×3 (12:34→21:52)
[2021-10-25] MEDS: cefTRIAXone 1,000 MG in SODIUM CHLORIDE 0.9% 100 ML IV SCH (16:20)
[2021-10-25] MEDS: ROSUVASTATIN 10 MG TABLET PO SCH (21:52)
[2021-10-26] MEDS: SODIUM CHLORIDE 0.9% 1,000 ML IV SCH ×3 (00:54→16:53)
[2021-10-26] MEDS: PANTOPRAZOLE 40 MG TABLET PO SCH (05:38)
[2021-10-26] MEDS: INSULIN REGULAR 100 UNIT/ML SUBCUT SCH ×4 (08:29→20:52)
[2021-10-26] MEDS: PROPRANOLOL 20 MG TABLET PO SCH ×3 (09:22→20:44)
[2021-10-26] MEDS: DOCUSATE SODIUM 100 MG CAPSULE PO SCH ×2 (09:22→20:44)
[2021-10-26] MEDS: amLODIPine 2.5 MG TABLET PO SCH (09:22)
[2021-10-26] MEDS: ASPIRIN EC 81 MG TABLET PO SCH (09:22)
[2021-10-26 11:00] LABS: Basophils # 0.1 10*3/uL (0.0-0.2); Basophils % 0.3 % (0.0-0.8); Eosinophils # 0.1 10*3/uL (0.0-0.87); Eosinophils % 0.2 % (0.00-10.9); Hematocrit 33.2 VOL% (42.0-52.0); Immature Granulocytes % 3.2 %; Lymphocytes # 0.9 10*3/uL (1.4-4.0); Lymphocytes % 3.5 % (21.2-54.2); Mean Corpuscular HGB Conc 33.1 GM/DL (32-36); Mean Corpuscular Volume 101.8 FL (87-102); Mean Platelet Volume 11.5 FL (9.6-12.0); Monocytes # 8.1 10*3/uL (0.11-0.8); Monocytes % 32.1 % (1.7-12.7); Neutrophils % 60.7 % (38.7-73.9); Platelet Count 142 T/CUMM (130-400); Red Blood Count 3.26 MC/CUMM (3.8-5.5); Red Cell Distribution Width 15.8 % (9.3-17.3); White Blood Count 25.1 T/CUMM (4-12)
[2021-10-26 11:20] LABS: Burr Cells Slight; Lymphocytes 3 % (20-55); Platelet Estimate Adequate; Total Cells Counted 100
[2021-10-26 11:24] LABS: Calcium 8.1 MG/DL (8.5-10.1); Osmolality,Calculated 278.2 MOS/KG (273-304); Potassium 4.6 MMOL/L (3.5-5.1)
[2021-10-26] MEDS: cefTRIAXone 1,000 MG in SODIUM CHLORIDE 0.9% 100 ML IV SCH (15:09)
[2021-10-26] MEDS: ACETAMINOPHEN 325 MG TABLET PO PRN (16:37)
[2021-10-26] MEDS: ALBUTEROL/IPRATROPIUM 3 ML NEB RESP TX SCH ×2 (20:40→21:13)
[2021-10-26] MEDS: traMADol 50 MG TABLET PO PRN (20:44)
[2021-10-26] MEDS: ALUMINUM/MAGNES/SIMETH MAX STR 30 ML UDCUP PO PRN (20:45)
[2021-10-26] MEDS: ROSUVASTATIN 10 MG TABLET PO SCH (20:45)
[2021-10-26 23:38] LABS: Arterial Base Excess iSTAT -6 MMOL/L (-2.5-2.5); Arterial Bicarbonate iSTAT 17.3 MMOL/L (20-26); Arterial O2 Saturation iSTAT 95 % (95-100); Arterial PCO2 iSTAT 26 MM HG (35-48); Arterial PO2 iSTAT 70 MM HG (80-95); Arterial Total CO2 iSTAT 18 MMO/L (23-27); Arterial pH iSTAT 7.424 (7.35-7.45)
[2021-10-26 23:45] LABS: Bacteria,Urine Occasional /HPF (Few); Granular Casts,Urine 3 /LPF (0-1); Mucus,Urine Occasional /LPF (Occasional); RBC,Urine 18 /HPF (0-4)
[2021-10-26 23:47] LABS: Urine Appearance Clear (Clear); Urine Color Yellow (Yellow); Urine Specific Gravity 1.025 (1.001-1.035); Urine pH 5.5 (4.5-8.0)
[2021-10-26 23:48] LABS: Bilirubin,Urine Negative (Negative); Blood, Urine Moderate mg/dL (Negative); Glucose,Urine (UA) Negative (Negative); Ketones,Urine Negative (Negative); Nitrite,Urine Negative (Negative); Protein,Urine 100 mg/dL (Negative); Urine Urobilinogen 0.2 eU/dL (<2.0)
[2021-10-27] MEDS: ACETAMINOPHEN 325 MG TABLET PO PRN ×2 (00:55→06:13)
[2021-10-27] MEDS: traMADol 50 MG TABLET PO PRN (03:20)
[2021-10-27] MEDS: ALBUTEROL/IPRATROPIUM 3 ML NEB RESP TX SCH ×6 (03:36→23:50)
[2021-10-27] MEDS: SODIUM CHLORIDE 0.9% 1,000 ML IV SCH (03:39)
[2021-10-27] MEDS: PANTOPRAZOLE 40 MG TABLET PO SCH (05:43)
[2021-10-27] MEDS: INSULIN REGULAR 100 UNIT/ML SUBCUT SCH ×4 (07:31→22:53)
[2021-10-27] MEDS ORDERED: FUROSEMIDE 20 MG/2 ML VIAL IV ONE (07:53)
[2021-10-27] MEDS ORDERED: methylPREDNISolone SOD SUC 40 MG/1 ML VIAL IV ONE (07:53)
[2021-10-27 08:00] LABS: Basophils # 0.2 10*3/uL (0.0-0.2); Basophils % 0.7 % (0.0-0.8); Hemoglobin 12.7 GM/DL (14.0-18.0); Immature Granulocytes % 3.5 %; Immature Granulocytes Absolute 0.99 #; Lymphocytes # 0.8 10*3/uL (1.4-4.0); Lymphocytes % 2.9 % (21.2-54.2); Mean Corpuscular HGB Conc 32.6 GM/DL (32-36); Mean Corpuscular Volume 100.8 FL (87-102); Mean Platelet Volume 11.8 FL (9.6-12.0); Monocytes # 6.7 10*3/uL (0.11-0.8); Monocytes % 23.9 % (1.7-12.7); NRBC # 0.02 10*3/uL; Platelet Count 157 T/CUMM (130-400); Red Blood Count 3.87 MC/CUMM (3.8-5.5); Red Cell Distribution Width 16.2 % (9.3-17.3); White Blood Count 27.9 T/CUMM (4-12)
[2021-10-27 08:19] LABS: Arterial Base Excess iSTAT -5 MMOL/L (-2.5-2.5); Arterial Bicarbonate iSTAT 17.7 MMOL/L (20-26); Arterial O2 Saturation iSTAT 94 % (95-100); Arterial PCO2 iSTAT 27 MM HG (35-48); Arterial PO2 iSTAT 67 MM HG (80-95); Arterial Total CO2 iSTAT 18 MMO/L (23-27); Arterial pH iSTAT 7.428 (7.35-7.45)
[2021-10-27] MEDS ORDERED: FUROSEMIDE 40 MG/4 ML VIAL IV ONE (08:25)
[2021-10-27 08:27] LABS: Lymphocytes 2 % (20-55); Platelet Estimate Adequate; Total Cells Counted 100
[2021-10-27 08:29] LABS: Albumin 2.8 G/DL (3.4-5.0); Bilirubin,Total 0.5 MG/DL (0.20-1.00); Calcium 8.8 MG/DL (8.5-10.1); Osmolality,Calculated 279.1 MOS/KG (273-304); Potassium 4.5 MMOL/L (3.5-5.1); Total Protein 7.9 G/DL (6.4-8.2)
[2021-10-27] MEDS: amLODIPine 2.5 MG TABLET PO SCH (09:07)
[2021-10-27] MEDS: ENOXAPARIN 40 MG/0.4 ML SYRINGE SUBCUT SCH (09:07)
[2021-10-27] MEDS: DOCUSATE SODIUM 100 MG CAPSULE PO SCH ×2 (09:07→21:23)
[2021-10-27] MEDS: PROPRANOLOL 20 MG TABLET PO SCH ×3 (09:07→21:23)
[2021-10-27] MEDS: ASPIRIN EC 81 MG TABLET PO SCH (09:07)
[2021-10-27] MEDS: cefTRIAXone 1,000 MG in SODIUM CHLORIDE 0.9% 100 ML IV SCH (16:43)
[2021-10-27] MEDS: ROSUVASTATIN 10 MG TABLET PO SCH (21:23)
[2021-10-28] MEDS: ALBUTEROL/IPRATROPIUM 3 ML NEB RESP TX SCH ×5 (04:22→18:56)
[2021-10-28] MEDS: PANTOPRAZOLE 40 MG TABLET PO SCH (06:29)
[2021-10-28] MEDS: ENOXAPARIN 40 MG/0.4 ML SYRINGE SUBCUT SCH (09:29)
[2021-10-28] MEDS: ASPIRIN EC 81 MG TABLET PO SCH (09:30)
[2021-10-28] MEDS: amLODIPine 2.5 MG TABLET PO SCH (09:30)
[2021-10-28] MEDS: PROPRANOLOL 20 MG TABLET PO SCH ×3 (09:31→22:08)
[2021-10-28] MEDS: traMADol 50 MG TABLET PO PRN (09:32)
[2021-10-28] MEDS: DOCUSATE SODIUM 100 MG CAPSULE PO SCH ×2 (09:32→22:08)
[2021-10-28] MEDS: INSULIN REGULAR 100 UNIT/ML SUBCUT SCH ×4 (09:57→21:00)
[2021-10-28 10:22] LABS: Basophils # 0.1 10*3/uL (0.0-0.2); Basophils % 0.5 % (0.0-0.8); Eosinophils % 0.1 % (0.00-10.9); Hematocrit 35.5 VOL% (42.0-52.0); Hemoglobin 12.1 GM/DL (14.0-18.0); Immature Granulocytes % 1.6 %; Immature Granulocytes Absolute 0.46 #; Lymphocytes % 3.3 % (21.2-54.2); Mean Corpuscular HGB Conc 34.1 GM/DL (32-36); Mean Corpuscular Volume 95.9 FL (87-102); Mean Platelet Volume 11.2 FL (9.6-12.0); Monocytes # 4.4 10*3/uL (0.11-0.8); Monocytes % 15.3 % (1.7-12.7); Neutrophils % 79.2 % (38.7-73.9); Platelet Count 168 T/CUMM (130-400); Red Cell Distribution Width 15.9 % (9.3-17.3)
[2021-10-28 10:42] LABS: Acanthocytes Few; Band Neutrophils 4 % (0-10); Burr Cells Slight; Lymphocytes 2 % (20-55); Microcytosis 1+; Total Cells Counted 100
[2021-10-28 10:43] LABS: Platelet Estimate Adequate
[2021-10-28 11:22] LABS: Calcium 8.9 MG/DL (8.5-10.1); Osmolality,Calculated 284.8 MOS/KG (273-304); Potassium 3.8 MMOL/L (3.5-5.1)
[2021-10-28] MEDS: cefTRIAXone 1,000 MG in SODIUM CHLORIDE 0.9% 100 ML IV SCH (16:53)
[2021-10-28] MEDS: ROSUVASTATIN 10 MG TABLET PO SCH (22:08)
[2021-10-29] MEDS: ALBUTEROL/IPRATROPIUM 3 ML NEB RESP TX SCH ×4 (00:02→11:41)
[2021-10-29 07:14] LABS: Basophils # 0.1 10*3/uL (0.0-0.2); Basophils % 0.3 % (0.0-0.8); Eosinophils # 0.1 10*3/uL (0.0-0.87); Eosinophils % 0.7 % (0.00-10.9); Hematocrit 29.9 VOL% (42.0-52.0); Hemoglobin 10.3 GM/DL (14.0-18.0); Immature Granulocytes % 2.3 %; Immature Granulocytes Absolute 0.38 #; Lymphocytes # 1.6 10*3/uL (1.4-4.0); Lymphocytes % 9.7 % (21.2-54.2); Mean Corpuscular HGB Conc 34.4 GM/DL (32-36); Mean Corpuscular Volume 96.1 FL (87-102); Mean Platelet Volume 11.4 FL (9.6-12.0); Monocytes # 3.1 10*3/uL (0.11-0.8); Monocytes % 19.3 % (1.7-12.7); NRBC # 0.03 10*3/uL; Neutrophils % 67.7 % (38.7-73.9); Platelet Count 178 T/CUMM (130-400); Red Blood Count 3.11 MC/CUMM (3.8-5.5); Red Cell Distribution Width 15.9 % (9.3-17.3); White Blood Count 16.3 T/CUMM (4-12)
[2021-10-29 07:37] LABS: Band Neutrophils 1 % (0-10); Hypochromia 1+; Lymphocytes 11 % (20-55); Metamyelocytes 1 %; Total Cells Counted 100
[2021-10-29 07:38] LABS: Acanthocytes Few; Microcytosis 1+; Target Cells Slight
[2021-10-29 07:39] LABS: Platelet Estimate Adequate
[2021-10-29 07:47] LABS: Immunoglobulin A (Chem) 397 MG/DL (70-400); Immunoglobulin G (Chem) 808 MG/DL (700-1600); Immunoglobulin M (Chem) 34 MG/DL (40-230)
[2021-10-29] MEDS ORDERED: cefTRIAXone 1,000 MG in SODIUM CHLORIDE 0.9% 100 ML IV ONE (07:48)
[2021-10-29 07:49] LABS: Calcium 8.1 MG/DL (8.5-10.1); Osmolality,Calculated 286.4 MOS/KG (273-304); Potassium 3.3 MMOL/L (3.5-5.1)
[2021-10-29 10:12] LABS: Albumin (SPE) 3.6 G/DL (3.2-5.3); Albumin (SPE) Rel % 50.9 %; Alpha 1 (SPE) 0.4 G/DL (0.1-0.4); Alpha 1 (SPE) Rel % 5.5 %; Alpha 2 (SPE) 1.2 G/DL (0.4-1.0); Alpha 2 (SPE) Rel % 17.7 %; Beta (SPE) 1.1 G/DL (0.5-1.1); Beta (SPE) Rel % 15.5 %; Gamma (SPE) 0.7 G/DL (0.7-1.7); Gamma (SPE) Rel % 10.4 %
[2021-10-29] MEDS: PANTOPRAZOLE 40 MG TABLET PO SCH (10:29)
[2021-10-29] MEDS: ASPIRIN EC 81 MG TABLET PO SCH (10:30)
[2021-10-29] MEDS: DOCUSATE SODIUM 100 MG CAPSULE PO SCH (10:30)
[2021-10-29] MEDS: INSULIN REGULAR 100 UNIT/ML SUBCUT SCH ×3 (10:30→17:38)
[2021-10-29] MEDS: amLODIPine 2.5 MG TABLET PO SCH (10:30)
[2021-10-29] MEDS: PROPRANOLOL 20 MG TABLET PO SCH ×2 (10:31→17:39)
[2021-10-29] MEDS: cefTRIAXone 1,000 MG in SODIUM CHLORIDE 0.9% 100 ML IV SCH (10:31)
[2021-10-29] MEDS: ENOXAPARIN 40 MG/0.4 ML SYRINGE SUBCUT SCH (10:31)
[2021-10-29] MEDS ORDERED: POTASSIUM CHLORIDE 20 MEQ TABLET PO ONE ×2 (11:00→15:00)
[2021-10-29 16:19] VITALS: BP 139/65
== END 2021-10-29 17:00 | disposition home or self-care (01) | DRG 690 ==
LOC: N.ED 09:52 → N.EDINP 14:43 → N.5E 18:51
PROVIDERS: ADMIT Family Medicine; ATTEND Family Medicine